=== PATIENT | female | born 1995 | race Caucasian/White ===

== ENCOUNTER 2021-08-05 20:36 | Emergency (ER) | payer MEDICARE, MEDICAID, SELFPAY ==
[2021-08-05 20:46] VITALS: BP 129/87; PULSE 81; RESP 18; TEMP 36.2; O2SAT 98
--- NOTE | 2021-08-05 20:58 | ECG_ITS ---
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 Measurements Intervals [place] Rate: 69 P: 42 TN: 169 QRS: 46 QRSD: 102 T: 31 QT: 379 QTc: 407 Interpretive Statements SINUS RHYTHM POSSIBLE RIGHT VENTRICULAR CONDUCTION DELAY [RSR (QR) IN V1/V2] No previous ECG available for comparison Electronically Signed On 08-06-2021 20:50:53 CDT by Teofilo Mina M.D. [id number]
[2021-08-05 21:14] LABS: Basophils # 0.1 10^3/uL (0.0-0.1); Basophils % 0.9 %; Eosinophils # 0.2 10^3/uL (0.0-0.8); Eosinophils % 3.3 %; Hematocrit 36.7 % (37.0-47.0); Hemoglobin 12.5 g/dL (11.5-15.3); Lymphocytes # 2.2 10^3/uL (0.8-4.8); Lymphocytes % 32.8 %; Mean Corpuscular HGB Conc 34.1 g/dL (30.0-36.0); Mean Corpuscular Hemoglobin 29.1 pg (28.0-34.0); Mean Corpuscular Volume 85.5 fl (81-99); Mean Platelet Volume 10.1 fL (7.4-10.4); Monocytes % 14.6 %; Neutrophils # 3.22 10^3/uL (1.8-7.7); Neutrophils % 48.1 %; Nucleated Red Blood Cells % 0 %; Platelet Count 336 10^3/cmm (130-400); Red Blood Count 4.29 10^6/uL (4.1-5.3); White Blood Count 6.7 10^3/uL (4.0-10.0)
--- NOTE | 2021-08-05 21:15 | ED.C_ITS ---
HPI - Psych General: Chief Complaint: Psychiatric Symptoms Stated Complaint: Depression Time Seen by Provider: 08/05/21 20:53 Source: patient Mode of arrival: ambulatory Limitations: no limitations History of Present Illness: 25-year-old female states that she has been having increasing depression. States she was admitted at [facility] a month ago and since being home over the last week she has been having increasing depression with suicidal thoughts she has had to have her mother hide all the sharp objects that she is scared she may harm her self no specific plan she voluntarily wants to get help. Associated symptoms: Reports depression Review of Systems Const: Denies: fever(s), chills, body aches or change in appetite Eyes: Denies: blurry vision or eye discomfort ENMT: Denies: throat pain or dental pain Card: Denies: chest pain Resp: Denies: dyspnea GI: Denies: abdominal pain, nausea, vomiting or diarrhea : Denies: dysuria Musc: Denies: neck pain or back pain Skin/Breast: Denies: rash Neuro: Denies: headache(s) Psych: Reports: depression John/Lymph: Denies: easy bruising All/Imm: Denies: urticaria PFSH ED PFSH: Medical History (Updated 08/06/21 @ 02:55 by George Will MD) Depression Social History (Updated 08/05/21 @ 21:16 by George Will MD) Substance/Drug Use: never Female Reproductive History: Date of last menstrual period: 08/01/21 Physical Exam Const: COMMON NORMALS: no acute distress, patient oriented x3 and healthy appearing HENMT: COMMON NORMALS: normocephalic and atraumatic HEAD & SCALP: normocephalic and atraumatic Eye: COMMON NORMALS: Equal, round and reactive pupils present and EOMs intact bilaterally PUPIL: Yes Equal, round and reactive pupils present Neck/C-Spine: COMMON NORMALS: full ROM and supple Chest: COMMONS NORMALS: normal inspection of the chest and normal palpation of entire chest wall Resp: COMMON NORMALS: normal respiratory effort, No retractions, No use of accessory muscles and clear to auscultation bilaterally AUSCULTATION: clear to auscultation bilaterally Cardio: COMMON NORMALS: regular rate, regular rhythm and No murmurs present (Cardio) RATE: regular rate RHYTHM: regular rhythm GI: COMMON NORMALS: Normal to inspection, nondistended, normoactive bowel sounds present, Soft to palpation, non-tender and no masses PALPATION: Yes Soft to palpation Extremity: COMMON NORMALS: normal to inspection and full ROM Neuro: COMMON NORMALS: patient oriented x3, moves all extremities and no focal motor deficits Psych: COMMON NORMALS: mental status grossly normal, Normal thought process present and cooperative THOUGHT PROCESS: Normal thought process present THOUGHT CONTENT: Yes Suicidality present Skin: COMMON NORMALS: no rashes or lesions noted and no wounds GENERAL SKIN EXAM: no rashes or lesions noted Course Vital Signs: Vital signs: Vital Signs Temperature 97.1 F L 08/05/21 20:46 Pulse Rate 73 08/06/21 02:30 Respiratory Rate 16 08/06/21 02:30 Blood Pressure 129/93 08/06/21 02:30 Pulse Oximetry 98 08/06/21 02:30 MDM - Psych Medical Decision Making Patient presents here with suicidal ideation she is medically cleared voluntarily wanting admission patient excepted at [facility] transfer there. Lab Data : 08/05/21 21:05 08/05/21 21:05 Laboratory Results WBC 6.7 10^3/uL (4.0-10.0) 08/05/21 21:05 RBC 4.29 10^6/uL (4.1-5.3) 08/05/21 21:05 Hgb 12.5 g/dL (11.5-15.3) 08/05/21 21:05 Hct 36.7 % (37.0-47.0) L 08/05/21 21:05 MCV 85.5 fl (81-99) 08/05/21 21:05 MCH 29.1 pg (28.0-34.0) 08/05/21 21:05 MCHC 34.1 g/dL (30.0-36.0) 08/05/21 21:05 RDW 13.0 % (12.1-15.1) 08/05/21 21:05 Plt Count 336 10^3/cmm (130-400) 08/05/21 21:05 MPV 10.1 fL (7.4-10.4) 08/05/21 21:05 Neut % (Auto) 48.1 % 08/05/21 21:05 Lymph % (Auto) 32.8 % 08/05/21 21:05 [place] % (Auto) 14.6 % 08/05/21 21:05 Eos % (Auto) 3.3 % 08/05/21 21:05 Baso % (Auto) 0.9 % 08/05/21 21:05 Neut # (Auto) 3.22 10^3/uL (1.8-7.7) 08/05/21 21:05 Lymph # (Auto) 2.2 10^3/uL (0.8-4.8) 08/05/21 21:05 [place] # (Auto) 1.0 10^3/uL (0.2-0.9) H 08/05/21 21:05 Eos # (Auto) 0.2 10^3/uL (0.0-0.8) 08/05/21 21:05 Baso # (Auto) 0.1 10^3/uL (0.0-0.1) 08/05/21 21:05 Nucleated RBC % (auto) 0 % 08/05/21 21:05 Nucleated RBCs # 0.0 /100WBC 08/05/21 21:05 Sodium 140 mmol/L (136-145) 08/05/21 21:05 Potassium 4.0 mmol/L (3.5-5.1) 08/05/21 21:05 Chloride 106 mmol/L (98-107) 08/05/21 21:05 Carbon Dioxide 24 mmol/L (22-29) 08/05/21 21:05 Anion Gap 14.0 (5-19) 08/05/21 21:05 BUN 10 mg/dL (6-20) 08/05/21 21:05 Creatinine 0.6 mg/dL (0.5-0.9) 08/05/21 21:05 GFR Calculation 121.8 mL/min (90-130) 08/05/21 21:05 Glucose 109 mg/dL (65-115) 08/05/21 21:05 Calculated Osmolality 290 mOsm/kg (285-295) 08/05/21 21:05 Calcium 8.4 mg/dL (8.5-10.5) L 08/05/21 21:05 Total Bilirubin 0.2 mg/dL (0.15-1.2) 08/05/21 21:05 AST 14 U/L (0-32) 08/05/21 21:05 ALT 19 U/L (0-33) 08/05/21 21:05 Alkaline Phosphatase 83 IU/L (35-105) 08/05/21 21:05 Total Protein 6.2 g/dL (6.6-8.7) L 08/05/21 21:05 Albumin 4.1 g/dL (3.5-5.2) 08/05/21 21:05 Globulin 2.1 g/dL (1.3-4.6) 08/05/21 21:05 HCG, Qual Negative (Negative) 08/05/21 21:05 Salicylates < 0.3 mg/dL (3-10) L 08/05/21 21:05 Urine Opiates Screen Negative ng/mL (Negative) 08/05/21 21:05 Acetaminophen < 5.0 ug/mL (10-30) L 08/05/21 21:05 Ur Barbiturates Screen Negative ng/mL (Negative) 08/05/21 21:05 Ur Phencyclidine Scrn Negative ng/mL (Negative) 08/05/21 21:05 Ur Amphetamines Screen Negative ng/mL (Negative) 08/05/21 21:05 U Benzodiazepines Scrn Negative ng/mL (Negative) 08/05/21 21:05 Urine Cocaine Screen Negative ng/mL (Negative) 08/05/21 21:05 U Marijuana (THC) Screen Negative ng/mL (Negative) 08/05/21 21:05 Ethyl Alcohol < 10 mg/dL (0-10) 08/05/21 21:05 Coronavirus 229E (PCR) Detected (NOT DETECT) A 08/05/21 22:25 SARS-CoV-2 (PCR) Not detected (NOT DETECT) 08/05/21 22:25 EKG Data EKG 1: I personally reviewed and interpreted this EKG as follows: EKG interpretation date: 08/05/21 EKG interpretation time: 22:32 Interpretation: nsr hr [address] or t wave abnormalities qrs 102 qtc 398 Discharge Plan Discharge Patient Disposition: Xfer Short-Term Hosp Clinical Impression: Suicidal ideation Coding Level of Care Code 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
[2021-08-05 21:18] LABS: HCG Qualitative Urine. Negative (Negative)
[2021-08-05 21:35] LABS: Alanine Aminotransferase 19 U/L (0-33); Albumin Level 4.1 g/dL (3.5-5.2); Alkaline Phosphatase 83 IU/L (35-105); Aspartate Amino Transferase 14 U/L (0-32); Blood Urea Nitrogen 10 mg/dL (6-20); Calcium 8.4 mg/dL (8.5-10.5); Carbon Dioxide 24 mmol/L (22-29); Chloride 106 mmol/L (98-107); Globulin 2.1 g/dL (1.3-4.6); Glomerular Filtration Rate 121.8 mL/min (90-130); Glucose 109 mg/dL (65-115); Osmolality Calculated 290 mOsm/kg (285-295); Salicylate < 0.3 mg/dL (3-10); Sodium 140 mmol/L (136-145); Total Bilirubin 0.2 mg/dL (0.15-1.2); Total Protein 6.2 g/dL (6.6-8.7)
[2021-08-05 21:36] LABS: Acetaminophen < 5.0 ug/mL (10-30); Alcohol Level < 10 mg/dL (0-10)
[2021-08-05 22:41] LABS: Amphetamines Screen Urine Negative (Negative); Barbiturates Screen Urine Negative (Negative); Benzodiazepines Screen Urine Negative (Negative); Cocaine Screen Urine Negative (Negative); Opiate Screen Urine Negative (Negative); PCP Screen Urine Negative (Negative); THC Screen Urine Negative (Negative)
[2021-08-05 22:50] VITALS: BP 130/92; PULSE 80; RESP 18; O2SAT 98
[2021-08-05 23:50] VITALS: BP 121/88; PULSE 74; RESP 18; O2SAT 99
[2021-08-06 00:45] VITALS: BP 128/90; PULSE 71; RESP 16; O2SAT 97
[2021-08-06 00:59] LABS: Adenovirus Not Detected (NOT DETECT); Chlamydia Pneumoniae Not Detected (NOT DETECT); Coronavirus 229E,HKU1,NL63,OC4 Detected (NOT DETECT); Human Metapneumovirus Not Detected (NOT DETECT); Human Rhinovirus/Enterovirus Not Detected (NOT DETECT); Influenza A Not Detected (NOT DETECT); Influenza A H1 Not Detected (NOT DETECT); Influenza A H1-2009 Not Detected (NOT DETECT); Influenza A H3 Not Detected (NOT DETECT); Influenza B Not Detected (NOT DETECT); Mycoplasma Pneumoniae Not Detected (NOT DETECT); Parainfluenza Virus Type 1 Not Detected (NOT DETECT); Parainfluenza Virus Type 2 Not Detected (NOT DETECT); Parainfluenza Virus Type 3 Not Detected (NOT DETECT); Parainfluenza Virus Type 4 Not Detected (NOT DETECT); Respiratory Syncytial Virus A Not Detected (NOT DETECT); Respiratory Syncytial Virus B Not Detected (NOT DETECT); SARS-COV-2 Not Detected (NOT DETECT)
[2021-08-06 01:45] VITALS: BP 140/92; PULSE 75; RESP 16; O2SAT 98
[2021-08-06 02:30] VITALS: BP 129/93; PULSE 73; RESP 16; O2SAT 98
--- NOTE | 2021-08-06 05:13 | PC.NURSE ---
Pt sleeping at this time. Awaiting transport to [facility]
[2021-08-06 06:00] VITALS: BP 141/93; PULSE 80; RESP 18; O2SAT 98
== END 2021-08-06 09:25 | disposition short-term general hospital (02) ==
PROVIDERS: Emergency Provider Emergency Medicine
DX: R45.851 Suicidal ideations (principal); F32.A Depression, unspecified
CPT/HCPCS: 80053; 80306; 80307; 81025; 85025; 87635; 93005; 99285